=== PATIENT | female | born 1945 | race Caucasian/White ===

== ENCOUNTER → 2018-10-08 12:12 | Outpatient (CLI) | payer OTHER, SELFPAY ==
--- NOTE | 2018-10-08 | DI.MRI.S_ITS ---
PROCEDURE: MR BRAIN (IAC) WWO CON INDICATIONS: Tinnitus, right ear TECHNIQUE: Noncontrast sagittal T1 spin echo, axial FLAIR, axial gradient echo, axial diffusion and ADC through the brain. Axial thin-slice 3D CISS, coronal TruFISP, axial T1 spin echo with fat saturation through the internal auditory canals. After the administration of contrast, thin slice axial and coronal T1 spin echo with fat saturation through the internal auditory canals, and axial T1 spin echo with fat saturation through the brain. COMPARISON: None. FINDINGS: Image quality: Excellent. Cerebellopontine angles: No cerebellopontine angle masses. Inner ear structures appear normally formed. No suspicious enhancement in the internal auditory canal or along the course of the 7th cranial nerve. CSF spaces: Ventricles are normal in size and shape. No extra-axial fluid collections. Basal cisterns are patent. Brain: No intracranial bleeds or mass effects. Berrios-white matter interface is intact. No abnormal intracranial enhancement. Diffusion weighted images demonstrate no acute ischemic insults. Brainstem appears normal. Normal intravascular flow voids are present. Skull and face: Calvarial marrow signal is normal. Orbits appear normal. Sinuses: Sinuses and mastoids are clear. IMPRESSION: Negative examination. No suspicious enhancement. No findings to explain right sided tinnitus. Dictated by: Boo Burns M.D. on 10/08/2018 at 14:58 Approved by: Boo Burns M.D. on 10/08/2018 at 15:05
== END ==
PROVIDERS: Visit Provider Internal Medicine
DX: H93.11 Tinnitus, right ear (principal)
CPT/HCPCS: 70553; A9579